=== PATIENT | female | born 1960 | race Caucasian/White ===

== ENCOUNTER 2023-08-09 08:50 | Day surgery (SDC) | payer OTHER ==
[~2023-08-09] VITALS: Ht 175.3 cm; Wt 102.7 kg
[~2023-08-09 08:50] MED LIST: EZET10 PO; Neurontin 300300 MG PO; PRAM.125 PO; PRAM.5 PO; Ropivacaine 0.5% HCl/Pf 5 MG/ML 20ML VIAL ONE
[2023-08-09] MEDS ORDERED: Lactated Ringer's 1,000 ML IV ONE ×2 (09:55→10:21)
[2023-08-09] MEDS ORDERED: NS 0 ML IV ONE (10:21)
[2023-08-09] MEDS ORDERED: CeFAZolin Sodium 2,000 MG VIAL ONE ×2 (10:21→10:29)
[2023-08-09] MEDS ORDERED: NS 50 ML IV ONE (10:29)
[2023-08-09] MEDS ORDERED: FentaNYL Citrate 50 MCG/ML 2 ML Injection ONE (10:51)
[2023-08-09] MEDS ORDERED: propofoL 20 ML IV ONE (10:51)
[2023-08-09] MEDS ORDERED: Ketorolac Tromethamine 30mg Vial ONE (10:51)
[2023-08-09] MEDS ORDERED: Midazolam HCl 1MG / ML 2ML Vial ONE (10:51)
[2023-08-09] MEDS ORDERED: Ondansetron HCl 2 MG / ML 2ML Vial ONE (10:51)
[2023-08-09] MEDS ORDERED: Dexamethasone Sod Phos 10 MG/ML 1ML VIAL ONE (10:51)
[2023-08-09] MEDS ORDERED: HYDROmorphone HCl/Pf 1MG SYR ONE (11:03)
[2023-08-09] MEDS ORDERED: Metoclopramide HCl 5MG / ML 2ML Vial ONE (12:14)
[2023-08-09 12:23] VITALS: BP 130/77
== END 2023-08-09 12:51 | disposition home or self-care (01) ==
LOC: ORSCSDS 08:50
PROVIDERS: Orthopaedic Surgery
PROC: 0SBD4ZZ Excision of Left Knee Joint, Percutaneous Endoscopic Approach (ICD-10-PCS; principal; 2023-08-09 10:15)
DX: S83.242D Other tear of medial meniscus, current injury, left knee, subsequent encounter (principal); S83.241A Other tear of medial meniscus, current injury, right knee, initial encounter; I10 Essential (primary) hypertension; B19.20 Unspecified viral hepatitis C without hepatic coma; E66.01 Morbid (severe) obesity due to excess calories; Z68.33 Body mass index [BMI] 33.0-33.9, adult
CPT/HCPCS: J0690; J1100; J1170; J1885; J2250; J2405; J2704; J2765; J2795; J3010; J7120

== ENCOUNTER → 2024-09-23 | Outpatient (CLI) | payer OTHER ==
[~2024-09-23] MED LIST changes: -Ropivacaine 0.5% HCl/Pf 5 MG/ML 20ML VIAL ONE; +TRAZ50; +TRAZ50 PO
[2024-09-26 23:40] LABS: OVA AND PARASITE,FECAL INTERP Negative (Negative)
== END ==
LOC: LAB SHORT 14:46 → LAB 14:46
PROVIDERS: Family Medicine
DX: R14.0 Abdominal distension (gaseous) (principal)
CPT/HCPCS: 87177; 87209